=== PATIENT | male | born 1940 | race Caucasian/White ===

== ENCOUNTER 2016-11-30 08:40 | Outpatient (CLI) | payer MEDICARE, BC ==
[~2016-11-30] VITALS: Ht 182.9 cm; Wt 109.1 kg
--- NOTE | ~2016-11-30 | HEMODYNAMI ---
PATIENT:CATRACHITO ANDREA MEDICAL RECORD: [id number] : 38 LOCATION:D.CAT ADMISSION DATE: 11/30/16 Generatedon:12/04/201614:53 Patient name: CATRACHITO ANDREA Patient #: [id number] SSN: [id number] : 1940 Date of study: 11/30/2016 Page: Of Hemodynamic Procedure Report Patient Data Patient Demographics Procedure consent was obtained First Name: CATRACHITO Gender: Male Last Name: EMRE : 1940 Patient #: [id number] Age: 76 year(s) Race: Unknown SSN: [id number] Additional ID: [id number] Contact details [address]: [address] [place] [address] State: [place] City: [place] Zip code: [address] Admission Admission Data Admission Date: 11/30/2016 Admission Time: 8:40 Arrival Date: 11/30/2016 Arrival Time: 11:00 Admit Source: Other Insurance Payor: Medicare Height (in.): 72 BSA: 2.3 (m2) Height (cm.): 182.88 BMI: 32.55 (kg/m2) Weight (lbs.): 240 Weight (kg.): 108.86 Lab Results Lab Result Date: 11/30/2016 Lab Result Time: 0:00 Biochemistry Name Units Result Min Max BUN mg/dl 24 --(----)-* 7 18 Creatinine mg/dl 1 --(--*-)-- 0.6 1.3 CBC Name Units Result Min Max Hemoglobin g/dl 13.6 --(*---)-- 13.5 17.5 Procedure Procedure Types Cath Procedure Diagnostic Procedure [facility] w/Coronaries PCI Procedure Coronary Stent Initial x2 Miscellaneous Procedures Moderate Sedation up to 45 minutes Procedure Description Procedure Date Procedure Date: 11/30/2016 Procedure Start Time: 12:39 Procedure End Time: 13:01 Procedure Staff Name Function Cande Flores RT Monitor Kusum Justice RN Nurse Burke Sampson MD Performing Physician Tiny Saeed RT Scrub Edda Phan RT Monitor Indication Angina Procedure Data Cath Procedure Fluoroscopy Diagnostic fluoroscopy Total fluoroscopy Time: 6.8 time: 6.8 min min Diagnostic fluoroscopy Total fluoroscopy dose: dose: 1573 mGy 1573 mGy Contrast Material Contrast Material Type Amount (ml) Isovue 300 114 Entry Location Entry Primary Successful Side Size Upsize Upsize Entry Closure Succes sful Closure Location (Fr) 1 (Fr) 2 (Fr) Remarks Device Remarks Femoral Right 5 Fr 6 Fr Exoseal artery Short Estimated blood loss: 5 ml Diagnostic catheters Device Type Used For End Catheter Placement Cordis 5Fr Pigtail LV Angiography Catheter (MP) Cordis 5Fr JL 4.0 Left Coronary Catheter (MP) Angiography Cordis 5Fr 3DRC Catheter Right Coronary (MP) Angiography Procedure Complications No complications Procedure Medications Medication Administration Route Dosage Oxygen NC 2 l/min Lidocaine 2% added to field 20 Heparin Flush Bag added to field 2 bags (1000units/500ml NS) 0.9% NaCl I.V. 100 ml/hr Versed I.V. 1 mg Fentanyl I.V. 50 mcg Versed I.V. 1 mg Fentanyl I.V. 50 mcg Heparin Bolus I.V. 4000 units Fentanyl I.V. 25 mcg Fentanyl I.V. 25 mcg Fentanyl I.V. 50 mcg Hemodynamics Rest BSA: 2.3 (m2) HGB: 13.6 (g/dl) O2 Consumption: Estimated: 253.36 (ml/min) O2 Con sumption indexed: Estimated:110.16 (ml/min/m) Heart Rate: 58 (bpm) Pressure Samples Time Site Value (mmHg) Purpose Heart Use Rate(bpm) 12:41 LV 57/55,55 Snapshot 64 Snapshots Pre Cath Intra NCS Post Cath Vital Signs Time Heart Resp SPO2 NIBP (mmHg) Rhythm Pain Sedation Rate (ipm) (%) Status Level (bpm) 12:25:55 72 21 99 135/81(123) NSR 0 (11) 10(A) , No pain 12:30:05 64 16 96 125/59(94) NSR 0 (11) 10(A) , No pain 12:34:11 61 22 96 116/59(82) NSR 0 (11) 9(A) , No pain 12:38:18 61 17 95 101/53(71) NSR 0 (11) 9(A) , No pain 12:42:22 62 15 96 108/57(77) NSR 0 (11) 9(A) , No pain 12:46:30 66 15 96 113/54(84) NSR 0 (11) 9(A) , No pain 12:50:44 67 16 95 111/49(73) NSR 0 (11) 9(A) , No pain 12:54:54 69 16 96 111/53(73) NSR 0 (11) 9(A) , No pain 12:59:00 70 15 96 123/62(93) NSR 0 (11) 9(A) , No pain 13:03:26 74 18 97 129/74(96) NSR 0 (11) 10(A) , No pain Medications Time Medication Route Dose Verified Delivered Reason Notes Effectiveness by by 12:29:15 Oxygen NC 2 Burke Buffie used for l/min Adrián Justice RN procedure 12:29:21 Lidocaine 2% added 20ml Burke Burke for local to vial Adrián Sampson MD anesthetic field 12:29:27 Heparin Flush added 2 Burke Burke used for Bag to bags Adrián Sampson MD procedure (1000units/500ml field NS) 12:29:37 0.9% NaCl I.V. 100 Burke Buffie Per physician ml/hr Adrián Justice RN 12:31:43 Versed I.V. 1 mg Burke Buffie for sedation Adrián Justice RN 12:31:50 Fentanyl I.V. 50 Burke Buffie for sedation mcg Adrián Justice RN 12:37:02 Versed I.V. 1 mg Burke Buffie for sedation Adrián Justice RN 12:37:06 Fentanyl I.V. 50 Burke Buffie for sedation mcg Adrián Justice RN 12:45:41 Heparin Bolus I.V. 4000 Burke Buffie for verifi ed units Adrián Justice RN anticoagulation with dr sampson 12:46:45 Fentanyl I.V. 25 Burke Buffie for sedation mcg Adrián Justice RN 12:54:01 Fentanyl I.V. 25 Burke Buffie for sedation mcg Adrián Justice RN 12:58:02 Fentanyl I.V. 50 Burke Buffie for sedation mcg Adrián Justice RN Procedure Log Time Note 11:58:47 Patient Height : 72 cm 11:58:54 Patient Weight : 240 kg 11:59:27 Diagnostic Cath status Elective 11:59:29 Kusum Justice RN sent for patient. Start room use. 11:59:31 Time tracking: Regular hours 11:59:36 Plan of Care:Hemodynamics will remain stable., Cardiac rhythm will remain stable., Comfort level will be maintained., Respiratory function will remain adequate., Patient/ family verbilizes understanding of procedure., Procedure tolerated without complication., Recovers from procedure without complications.. 12:09:30 Informed consent obtained and on chart 12:09:39 Admit Source: Other 12:09:47 Arrival Date: 11/30/2016 11:00:00 AM 12:09:54 Insurance Payor : Medicare 12:10:50 Lab Result : Hemoglobin 13.6 g/dl 12:10:50 Lab Result : Creatinine 1 mg/dl 12:10:50 Lab Result : BUN 24 mg/dl 12:11:01 Indication : Angina 12:18:55 Patient received from Pre/Post Procedure Room to CCL 2 Alert and oriented. Tansferred to table in Supine position. 12:18:56 Correct patient and procedure confirmed by team. 12:18:56 Warm blankets applied, and johanny hugger turned on for patient comfort. 12:18:57 ECG and BP/O2 sat monitors applied to patient. 12:24:37 Vital chart was started 12:24:37 Baseline sample Acquired. 12:24:41 Rhythm: sinus rhythm 12:24:43 Full Disclosure recording started 12:24:58 H&P Date Dictated: 11/05/2016 Within 30 days and on chart., H&P Addendum completed by physician on day of procedure. (MUST COMPLETE FOR ALL OUTPATIENTS). 12:25:00 Pre-op teaching completed and patient verbalized understanding. 12:25:00 Pre-procedure instructions explained to patient. 12:25:02 Family in waiting room. 12:25:03 Patient NPO since Midnight. 12:25:09 Is the patient allergic to Iodine/contrast media? No. 12:25:10 Was the patient premedicated? No 12:25:16 Is patient on blood thinner?Yes 12:25:23 ACC The patient was administered the following blood thiners within the last 24 hours: ACCPlavix 12:25:25 Patient diabetic? No. 12:25:28 Previous problem with sedation/anesthesia? No ? 12:25:30 Snore? Yes 12:25:31 Sleep apnea? No 12:25:32 Opens mouth fully? Yes 12:25:32 Deviated septum? No 12:25:35 Sticks out tongue? Yes 12:25:38 Airway obstruction? No ? 12:25:40 Dentures? No ? 12:25:44 Pre procedure: right dorsailis pedis pulse 1+ Palpable, but thready & weak; easily obliterated 12:25:46 Patient pain scale 0/10 ?. 12:25:51 IV patent on arrival in left forearm with 0.9% NaCl at [facility]. 12:25:55 Lab results completed and on chart. 12:25:58 Right groin area was prepped with chlora-prep and draped in sterile fashion 12:25:59 Alarms reviewed by R. N. 12:26:00 Sharps counted by scrub and verified by R.N. 12:26:03 Final Timeout: patient, procedure, and site verified with staff and physician. All members of the team are in agreement. 12:26:03 --------ALL STOP TIME OUT------ 12:26:03 Physician arrived 12:26:11 Right groin site verified by team. 12:26:13 Physical assessment completed. ASA score P 2 - A patient with mild systemic disease as per Burke Sampson MD. 12:26:16 Sedation plan: IV Moderate Sedation Versed, Fentanyl 12:26:21 Use device set Femoral Dx 12::22 Acist Syringe opened to sterile field. 12:26:23 Medline Cath Pack opened to sterile field. 12:26:23 Bag Decanter opened to sterile field. 12:26:24 St Fernando 260cm J .035 wire opened to sterile field. 12:26:24 Terumo 5Fr Lorraine Sheath opened to sterile field. 12::43 Acist Hand Control opened to sterile field. 12::44 Diagnostic Infinity 5Fr Multipack catheter opened to sterile field. 12::44 Acist Manifold opened to sterile field. 12::45 Tegaderm 4 x 4 opened to sterile field. 12:29:15 Oxygen 2 l/min NC was administered by Kusum Justice RN; used for procedure; 12:29:21 Lidocaine 2% 20ml vial added to field was administered by Burke Sampson MD; for local anesthetic; 12::27 Heparin Flush Bag (1000units/500ml NS) 2 bags added to field was administered by Burke Sampson MD; used for procedure; 12:29:37 0.9% NaCl 100 ml/hr I.V. was administered by Kusum Justice RN; Per physician; 12::43 Versed 1 mg I.V. was administered by Kusum Justice RN; for sedation; 12:31:50 Fentanyl 50 mcg I.V. was administered by Kusum Justice RN; for sedation; 12:33:10 Zero performed for pressure channel P1 12:37:02 Versed 1 mg I.V. was administered by Kusum Justice RN; for sedation; 12:37:06 Fentanyl 50 mcg I.V. was administered by Kusum Justice RN; for sedation; 12:39:28 Procedure started. 12:39:34 Local anesthetic to right femoral artery with Lidocaine 2% by Burke Sampson MD.INITIAL ACCESS ONLY 12:40:13 A 5 Fr sheath was inserted into the Right Femoral artery 12:40:51 A Cordis 5Fr Pigtail Catheter (MP) was advanced over the wire and used for LV Angiography. 12:41:13 LV hemodynamics recorded. 12:41:14 LV gram done using JORDAN 12:41:17 Injector settings: Ml/sec: 5, Volume: 15, 12:41:22 EF : 50 % 12:41:25 Catheter removed. 12:41:30 A Cordis 5Fr JL 4.0 Catheter (MP) was advanced over the wire and used for Left Coronary Angiography. 12:41:52 LCA angiography performed. 12:41:55 Injector settings: Ml/sec: 3\, Volume: 6, 12:43:58 Catheter removed. 12:44:03 A Cordis 5Fr 3DRC Catheter (MP) was advanced over the wire and used for Right Coronary Angiography. 12:44:51 RCA angiography performed. 12:44:54 Injector settings: Ml/sec: 3, Volume: 6, 12:45:00 Catheter removed. 12:45:16 Merit BasixCompak Inflation Kit opened to sterile field. 12:45:16 Terumo 6Fr Lorraine Sheath opened to sterile field. 12:45:17 Finnegan Whisper J 300cm 0.014 guide wire opened to sterile field. 12:45:35 Sheath upsized to a 6 Fr Short. 12:45:41 Heparin Bolus 4000 units I.V. was administered by Kusum Justice RN; for anticoagulation; verified with dr sampson 12:46:39 Cordis 6FR XB 4.0 guide catheter opened to sterile field. 12:46:45 Fentanyl 25 mcg I.V. was administered by Kusum Justice RN; for sedation; 12:46:47 6 Fr xblad 4 guide catheter was inserted over the wire 12:46:55 whisper wire advanced. 12:49:30 Wire advanced across lesion. 12:50:24 Inflation number: 1 A [place] Sci [place] 2.5 X 20 balloon was prepped and advanced across the Prox LAD, then inflated to 13 NIRMAL for 0:10 (min:sec). 12:50:41 Balloon removed over the wire. 12:52:55 Inflation Number: 2 A Biofreedom 3.0 x 18 stent (No Cost Implant) was prepped and advanced across the Prox LAD. The stent was deployed at 13 NIRMAL for 0:10 (min:sec). 12:53:16 Stent catheter was removed intact over wire. 12:53:45 Wire redirected to ramus. 12:54:01 Fentanyl 25 mcg I.V. was administered by Kusum Justice RN; for sedation; 12:55:31 Inflation number: 1 The [place] Sci [place] 2.5 X 20 balloon was reinflated across the Ramus, to 15 NIRMAL for 0:10 (min:sec). 12:58:02 Fentanyl 50 mcg I.V. was administered by Kusum Justice RN; for sedation; 12:58:14 Inflation Number: 2 A Biofreedom 2.25 x 18 Stent (No Cost Implant) was prepped and advanced across the Ramus. The stent was deployed at 13 NIRMAL for 0:10 (min:sec). 12:58:58 Stent catheter was removed intact over wire. 12:59:00 Wire removed. 12:59:01 Guide catheter removed. 12:59:25 Cordis 6Fr Exoseal opened to sterile field. 12:59:33 Sheath removed intact; hemostasis achieved with Exoseal to the Right Femoral artery. 12:59:35 Procedure ended.(Physican Out) 13:00:23 Fluoroscopy time 06.80 minutes. 13:00:27 Fluoroscopy dose: 1573 mGy 13:00:27 Flurop Dose total: 1573 13:00:31 Contrast amount:Isovue 300 114ml. 13:00:33 Sharps counted by scrub and verified by R.N. 13:00:34 Insertion/operative site no bleeding no hematoma. 13:00:37 Post-op/insertion site Right Femoral artery dressed using a 4 x 4 and Tegaderm. 13:00:39 Post right femoral artery:stable 13:00:40 Post Procedure Pulses reassessed and unchanged 13:00:43 Post procedure rhythm: unchanged. 13:00:46 Estimated blood loss: 5 ml 13:00:47 Patient needs reinforcement of post procedure teaching. 13:00:47 Post procedure instruction explained to patient.Patient verbalizes understanding. 13:01:15 Procedure type changed to Cath procedure, Diagnostic procedure, LHC, LHC w/Coronaries, PCI procedure, Coronary Stent Initial x2, Miscellaneous Procedures, Moderate Sedation up to 45 minutes 13:01:16 Procedure and supply charges have been captured, reviewed, submitted and are correct. 13:01:20 Procedure Complication : No complications 13:01:22 Vital chart was stopped 13:01:23 See physician's report for complete and final results. 13:01:26 Report given to Pre/Post Procedure Room. 13:01:29 Patient transfered to Pre/Post Procedure Room with Stretcher. 13::31 Full Disclosure recording stopped 13:01:31 Procedure ended. 13:01:37 ACC-PCI Only Patient was given prescriptions, or instructed by Burke Sampson MD to start/continue the following medications upon discharge: Plavix 13:01:38 End room use (Document Last) Intervention Summary Intervention Notes Time ActionType Lesion and Equipment Action# Pressure Duration Attributes Used 12:50:24 Inflate Prox LAD [employer] Sci 1 13 00:10 balloon [place] 2.5 X 20 balloon 12:52:55 [address] stent Prox LAD Biofreedom 2 13 00:10 3.0 x 18 stent (No Cost Implant) 12:55:31 Reinflate Ramus [place] Sci 1 15 00:10 balloon [place] 2.5 X 20 balloon 12:58:14 [address] stent Ramus Biofreedom 2 13 00:10 2.25 x 18 Stent (No Cost Implant) Device Usage Item Name Manufacture Quantity Catalog Number Hospital Part Current Mini mal Lot# / Charge Number Stock Stock Serial# Code Acist Acist 1 [id number] [id number] 563671 089670 20 Syringe Medical Systems Inc Bag Microtek 1 2002S [id number] 93526 929075 5 [employer] Medline Cardinal 1 [id number] 251486 37452 746886 5 Cath Pack Health Terumo 5Fr Terumo 1 [id number] 393116 157847 274065 [address] St Fernando 1 [id number] 710444 083012 112801 30 260cm J .035 wire Acist Hand Acist 1 67071 903028 902626 299363 5 Control Medical Systems Inc Acist Acist 1 25642 468360 139077 307874 5 Manifold Medical Systems Inc Diagnostic Cardinal 1 [id number] 418476 53630 079325 30 Infinity Health 5Fr Multipack catheter Tegaderm 4 3M 1 1626W 090029 898062 660308 5 x 4 Cordis 5Fr Cardinal 1 749687 5 Pigtail Health Catheter (MP) Cordis 5Fr Cardinal 1 842481 5 JL 4.0 Health Catheter (MP) Cordis 5Fr Cardinal 1 091673 5 3DRC Health Catheter (MP) Terumo 6Fr Terumo 1 [id number] 869741 272933 605765 40 Lorraine Sheath Merit Merit 1 CA9007 097247 620843 195596 15 BasixCompak Medical Inflation Kit Finnegan Finnegan 1 [id number] 056907 603447 403502 5 Whisper J Vascular 300cm 0.014 guide wire Cordis 6FR Cardinal 1 [id number] 837465 037659 353839 2 XB 4.0 Health guide catheter [employer] [employer] [place] 1 [id number] 091191 019285 479095 1 [id number] Feesheh 2.5 X 20 balloon Biofreedom Biosensors 1 [facility]2-3018 611672 872300 5 [id number] 3.0 x 18 [place] SA stent (No Cost Implant) Biofreedom Biosensors 1 [facility]2-2218 909753 077105 5 [id number] 2.25 x 18 [place] SA Stent (No Cost Implant) Cordis 6Fr Cardinal 1 [id number] 181259 870946 10 [facility] Health Signature Audit [place] Stage Time Signature Unsigned Intra-Procedure 11/30/2016 Cande Bañuelos Counts 1:05:42 PM RT(R) RT(R) 12/04/2016 2:52:39 PM Intra-Procedure 12/04/2016 Edda 2:53:41 PM Counts RT(R) Signatures Monitor : Cande Flores RT Signature : Date : Time : Monitor : Edda Signature : Counts RT Date : Time : [address] [address]
[2016-11-30] MEDS ORDERED: PLAVIX75 MG PO (09:52)
[2016-11-30] MEDS ORDERED: LISINOPRIL10 MG PO (09:52)
[2016-11-30] MEDS ORDERED: NORVASC5 MG PO (09:52)
[2016-11-30] MEDS ORDERED: FLOMAX0.4 MG PO (09:52)
[2016-11-30] MEDS ORDERED: VITAMIN B-12500 MCG PO (09:53)
[2016-11-30] MEDS ORDERED: CENTRUM MEN'S1 EACH PO (09:53)
[2016-11-30 09:54] VITALS: BP 133/76; Ht 182.9 cm; Wt 109.1 kg
[2016-11-30 10:16] LABS: BASOPHILS 0.5 % (0-2); EOSINOPHILS 3.2 % (0-7); HEMATOCRIT 41.6 % (42.0-54.0); HEMOGLOBIN 13.6 g/dL (13.5-17.5); IMMATURE GRANULOCYTES 0.2 % (0-5); LYMPHOCYTES 31.4 % (15-50); MCH 32.1 pg (26.0-34.0); MCHC 32.7 g/dL (31.0-37.0); MCV 98.1 fL (80.0-100.0); MEAN PLATELET VOLUME 10.3 fL (7.4-10.4); NEUTROPHILS 53.7 % (40-80); PLATELET COUNT 182 10x3/uL (130-400); RBC 4.24 10x6/uL (4.20-6.10); RDW 13.1 % (11.5-14.5); WBC 4.1 10x3/uL (4.8-10.8)
[2016-11-30 10:46] LABS: CALC OSMOLALITY 282 mosm/kg (275-300); CALCIUM 9.5 mg/dL (8.5-10.1); CARBON DIOXIDE 24.8 mmol/L (21.0-32.0); CHLORIDE - SERUM 105 mmol/L (98-107); CKMB 0.8 U/L (0.0-3.6); CREATINE KINASE 110 UL (21-232); GLUCOSE 102 mg/dL (74-106); POTASSIUM - SERUM 4.6 mmol/L (3.5-5.1); SODIUM 140 mmol/L (136-145); UREA NITROGEN 24 mg/dL (7-18); eGFR NON AFRICAN AMERICAN 77 mL/min (90-120)
[2016-11-30 10:49] LABS: TROPONIN-I < 0.017 ng/mL (0.000-0.060)
--- NOTE | 2016-11-30 13:30 | NUR ---
RIGHT GROIN CDI, NO HEMATOMA OR BLEEDING NOTED, DENIES PAIN
--- NOTE | 2016-11-30 14:00 | NUR ---
RIGHT GROIN CDI, NO CHANGES NOTED, PT LYING QUIETLY
--- NOTE | 2016-11-30 16:50 | NUR ---
IV D'C WITH CATIP INTACT, WRITTEN AND VERBAL INSTRUCTIONS GIVEN TO PT AND . DENIES PAIN OR NEEDS.
--- NOTE | 2016-12-03 10:11 | OP ---
PATIENT NAME: CATRACHITO ANDREA MEDICAL RECORD: [id number] :38 LOCATION:D.CAT ADMISSION DATE: SURGEON: MAO GOODWIN MD DATE OF OPERATION: 11/30/2016 PROCEDURES: 1. PTCA stent LAD. 2. PTCA stent of ramus intermedius. 3. Left heart catheterization. 4. Selective coronary angiography. 5. Left ventriculogram. INDICATION: Angina and coronary artery disease. PROCEDURE: After informed consent was obtained and after detailed explanation of risks, benefits as well as alternative therapies, the patient elected to proceed with angiogram and angioplasty. The right femoral area was prepped and draped in normal sterile fashion. The right femoral artery was cannulated via modified Seldinger technique with placement of 6-Comoran sheath. All catheters were exchanged through this sheath. FINDINGS: The left ventriculogram was performed in standard 30-degree JORDAN view, which reveals preserved cardiac wall motion, ejection fraction 50%. SELECTIVE CORONARY ANGIOGRAPHY: 1. Left main showed no significant angiographic disease. 2. Left anterior descending has a 90% stenosis proximally. This is a 15-mm lesion in a 3.0 vessel with VALERIE 3 flow. 3. Ramus intermedius has a 99% stenosis proximally. This is a 2.25 vessel, VALERIE 2 flow. Lesion is approximately 15-mm in length. 4. 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 The distal right coronary fills via left to right collaterals. PTCA STENT OF THE LAD: The stent used was a 3.0 x 18 mm BioFreedom. Result was 0% residual stenosis, VALERIE 3 flow. PTCA STENT OF THE RAMUS INTERMEDIUS: The stent used was a 2.25 x 18 mm BioFreedom. Result was 0% residual stenosis, sabianism of VALERIE-3 flow. IMPRESSION: Successful percutaneous transluminal coronary angioplasty stent of the ramus intermedius from the circumflex as well as the left anterior descending going from 90% to 99% initial stenosis to 0% residual. TRANSINT:[id number] Voice Confirmation ID: [id number] DOCUMENT ID: [id number] MAO GOODWIN MD at 1011 CC: [id number] DICTATION DATE: 11/30/16 1303 [place] INSTRUCTOR: 11/30/16 2247 [facility] CLI 11/30/16 [facility] [address] [place] [address]
== END 2016-11-30 17:00 | disposition home or self-care (01) ==
LOC: D.CATH 08:40
PROVIDERS: Internal Medicine Interventional Cardiology
DX: R94.30 Abnormal result of cardiovascular function study, unspecified (principal); R06.02 Shortness of breath; E78.5 Hyperlipidemia, unspecified; I10 Essential (primary) hypertension; I20.9 Angina pectoris, unspecified; Z01.812 Encounter for preprocedural laboratory examination; Z00.6 Encounter for examination for normal comparison and control in clinical research program
CPT/HCPCS: 93458; C9600 ×2